=== PATIENT | female | born 1945 | race Two or more races ===

== ENCOUNTER 2017-08-10 10:34 | Outpatient (CLI) | payer OTHER ==
[~2017-08-10] VITALS: Ht 152.4 cm; Wt 86.2 kg
[~2017-08-10 10:34] MED LIST: CEFTIN500 MG PO; DETROL LA4 MG PO; DEXILANT60 MG PO; DYMISTA NASAL S23 GM NS; FIORICET 50-321 EACH PO; FLONASE16 G1 NS; KLONOPIN0.5 MG/TAB PO; LIDODERM30 EA TP; LIPO-FLAVONOID1 EACH PO; MOTRIN800 MG PO; MULTI-DAY1 TAB PO; NASONEX17 GM NS; ORPH100T PO; PLAVIX75 MG PO; ULTRAM50 MG PO; [UNRECOGNIZED DRUG - OTHER] TP
[2017-08-10] MEDS ORDERED: NASONEX17 GM NASAL (12:58)
== END 2017-08-10 10:50 | disposition home or self-care (01) ==
LOC: OFIC 805 10:34
DX: J31.0 Chronic rhinitis (principal); H81.392 Other peripheral vertigo, left ear; H61.23 Impacted cerumen, bilateral

== ENCOUNTER → 2018-01-12 | Emergency (ER) | payer OTHER ==
[~2018-01-12] VITALS: Ht 162.6 cm; Wt 86.2 kg
[~2018-01-12] MED LIST changes: +NASONEX17 GM NASAL
== END | disposition home or self-care (01) ==
LOC: ER 19:51
DX: R42 Dizziness and giddiness (principal); F41.8 Other specified anxiety disorders

== ENCOUNTER 2018-04-10 12:35 | Outpatient (CLI) | payer OTHER | END 2018-04-10 12:49 | disposition home or self-care (01) | LOC: MAMO-SONO 12:35 | DX: Z12.31 Encounter for screening mammogram for malignant neoplasm of breast (principal); Z87.898 Personal history of other specified conditions; N64.4 Mastodynia; N63.10 Unspecified lump in the right breast, unspecified quadrant; N63.20 Unspecified lump in the left breast, unspecified quadrant ==

== ENCOUNTER 2018-05-10 23:27 | Emergency (ER) | payer OTHER ==
[~2018-05-10] VITALS: Ht 160 cm; Wt 86.2 kg
[2018-05-10] MEDS ORDERED: CLONAZEPAM0.5 MG (23:42)
[2018-05-11] MEDS ORDERED: ACETAMINOPHEN500 M2 PO (04:43)
[2018-05-11] MEDS ORDERED: NORFLEX100MG PO (04:43)
== END 2018-05-11 04:53 | disposition home or self-care (01) ==
LOC: ER 23:27
DX: S80.02XA Contusion of left knee, initial encounter (principal); S80.01XA Contusion of right knee, initial encounter; S16.1XXA Strain of muscle, fascia and tendon at neck level, initial encounter; W18.39XA Other fall on same level, initial encounter; Y93.89 Activity, other specified; Y92.59 Other trade areas as the place of occurrence of the external cause; Y99.8 Other external cause status

== ENCOUNTER 2019-01-21 09:58 | Emergency (ER) | payer OTHER ==
[~2019-01-21] VITALS: Ht 162.6 cm; Wt 87.1 kg
[~2019-01-21 09:58] MED LIST changes: +ACETAMINOPHEN500 M2 PO; +CLONAZEPAM0.5 MG; +NORFLEX100MG PO
== END 2019-01-21 14:02 | disposition home or self-care (01) ==
LOC: ER 09:58
DX: H53.142 Visual discomfort, left eye (principal); R53.81 Other malaise

== ENCOUNTER 2019-08-24 14:21 | Outpatient (CLI) | payer OTHER | END 2019-08-24 15:01 | disposition home or self-care (01) | LOC: MAMO-SONO 14:21 | PROVIDERS: ATTEND Obstetrics & Gynecology | DX: Z12.31 Encounter for screening mammogram for malignant neoplasm of breast (principal); N64.4 Mastodynia; N63.10 Unspecified lump in the right breast, unspecified quadrant; N63.20 Unspecified lump in the left breast, unspecified quadrant ==

== ENCOUNTER 2020-06-07 12:17 | Emergency (ER) | payer OTHER ==
[~2020-06-07] VITALS: Ht 154.9 cm; Wt 90.7 kg
== END 2020-06-07 18:18 | disposition home or self-care (01) ==
LOC: ER 12:17
DX: R42 Dizziness and giddiness (principal)

== ENCOUNTER 2022-09-28 17:18 | Emergency (ER) | payer OTHER ==
[~2022-09-28] VITALS: Ht 162.6 cm; Wt 87.1 kg
== END 2022-09-28 22:27 | disposition home or self-care (01) ==
LOC: ER 17:18
DX: R10.9 Unspecified abdominal pain (principal); G44.89 Other headache syndrome